=== PATIENT | male | born 1960 | race Caucasian/White ===

== ENCOUNTER 2017-02-18 14:06 | Emergency (ER) | payer OTHER ==
[~2017-02-18] VITALS: Ht 167.6 cm; Wt 90.7 kg
--- NOTE | 2017-02-18 14:06 | NUR ---
Patient BIBA BLS, transferred to [facility]. RN evaluating patient at bedside.
--- NOTE | 2017-02-18 14:10 | NUR ---
PATIENT BIBA; FOUND RESTING IN THE STREET AFTER WALKING FROM [facility] TO [place].EXHAUSTED/SOB/DIAPHORETIC PER HEALTH CENTER ASSOCIATE. BS FIELD 113. PT. AWAKE ,ALERT,ORIENTED.HX: LT. HAND FX. X3 WKS. AGO. NSS 500ML GIVEN FIELD . PT STATES I'M OKAY 'I WANNA GO HOME" . DENIES N/V/D; SKIN IS PINK/WARM/DRY; AAOX4; LUNGS CLEAR BL; HR EVEN AND REGULAR; PT DENIES ANY FEVER, CP, SOB, OR COUGH AT THIS TIME; PATIENT STATES PAIN OF 0/10 AT THIS TIME; PATIENT POSITIONED FOR COMFORT; HOB ELEVATED; BEDRAILS UP X2; BED DOWN. ALL MONITORS IN PLACED.
[2017-02-18] MEDS ORDERED: NACL 0.9% 1,000 ML IV ONE (14:12)
[2017-02-18] MEDS ORDERED: MULTIVITAMIN-12 10 ML, THIAMINE 100 MG, MAGNESIUM SULFATE 50% 2,000 MG, FOLIC ACID 5 MG... IV ONE ×5 (14:12)
[2017-02-18 14:23] VITALS: BP 142/81
[2017-02-18] MEDS ORDERED: MULTIVITAMIN-12 10 ML, THIAMINE 100 MG, MAGNESIUM SULFATE 50% 2,000 MG, FOLIC ACID 5 MG... IV SCH ×5 (14:26)
[2017-02-18 14:27] LABS: BASOPHILS # (AUTO) 0.1 K/uL (0.00-0.22); EOSINOPHILS # (AUTO) 0.2 K/uL (0-0.4); MONOCYTES # (AUTO) 0.1 K/uL (0.8-1.0)
[2017-02-18 14:31] LABS: BASOPHILS % (AUTO) 2.3 % (0.0-2.0); EOSINOPHILS % (AUTO) 4.7 % (0.0-4.0); HEMATOCRIT 38.6 % (36-52); LYMPHOCYTES # (AUTO) 1.8 K/uL (2.0-11.5); LYMPHOCYTES % (AUTO) 36.1 % (20.5-51.1); MEAN CORPUSCULAR HEMOGLOBIN 33 pg (27-31); MEAN CORPUSCULAR HGB CONC 34 g/dL (33-37); MEAN CORPUSCULAR VOLUME 99 fL (80-94); MONOCYTES % (AUTO) 2.8 % (1.7-9.3); NEUTROPHILS # (AUTO) 2.8 K/uL (1.8-7.7); NEUTROPHILS % (AUTO) 54.1 % (42.2-75.2); RED BLOOD CELL COUNT(AUTO) 3.91 MIL/uL (4.20-6.10); RED CELL DISTRIBUTION WIDTH 13.5 % (11.6-13.7)
[2017-02-18 14:33] LABS: PLATELET COUNT (AUTO) 60 K/uL (140-450)
[2017-02-18 14:38] LABS: ANION GAP 18.7 (8-16); CREATININE 0.8 mg/dL (0.7-1.3); POTASSIUM 3.7 mmol/L (3.5-5.1)
[2017-02-18 14:44] LABS: ALBUMIN 3.3 g/dL (3.4-5.0); TOTAL BILIRUBIN 2.5 mg/dL (0.0-1.0); TOTAL PROTEIN, SERUM 7.6 g/dL (6.4-8.2)
--- NOTE | 2017-02-18 14:53 | NUR ---
BLOOD ALCOHOL LEVEL RELAYED TO DR CHIU.
[2017-02-18 15:08] LABS: INR 1.1 (0.8-1.2); PARTIAL THROMBOPLASTIN TIME 27.8 secs (22-35.6); PROTHROMBIN TIME 11.6 secs (10.8-13.4)
--- NOTE | 2017-02-18 15:37 | NUR ---
PT SLEEPING;NO ACUTE DISTRESS NOTED;WILL CONTINUE TO MONITOR PT.
[2017-02-18 16:36] LABS: APPEARANCE,URINE CLEAR (CLEAR); BILIRUBIN,URINE NEGATIVE (NEGATIVE); BLOOD, URINE NEGATIVE (NEGATIVE); COLOR,URINE YELLOW (YELLOW); LEUKOCYTE ESTERASE ,URINE NEGATIVE (NEGATIVE); NITRITE, URINE NEGATIVE (NEGATIVE); PROTEIN,URINE NEGATIVE (NEGATIVE); UGLUCOSE NEGATIVE (NEGATIVE)
[2017-02-18 16:42] LABS: AMPHETAMINE, URINE NEG. ng/ml (NEG <=1000); BARBITURATE, URINE NEG. ng/ml (NEG <=200); BENZODIAZEPINE, URINE NEG. ng/mL (NEG <=200); CANNABINOID, URINE NEG. ng/mL (NEG <=50); COCAINE, URINE NEG. ng/mL (NEG <=300); OPIATE, URINE NEG. ng/mL (NEG <=2000); PHENCYCLIDINE SCREEN,URINE NEG. ng/mL (NEG <=25)
--- NOTE | 2017-02-18 16:45 | NUR ---
PT RESTING ON BED;ASKED FOR URINAL;
--- NOTE | 2017-02-18 17:18 | NUR ---
AT BEDSIDE;ALL MONITORS IN PALCED;NO ACUTE DISTRESS NOTED;WILL CONTINUE TO MONITOR PT.
[2017-02-18 18:53] VITALS: BP 142/86
--- NOTE | 2017-02-18 18:53 | NUR ---
Patient discharged with v/s stable. Written and verbal after care instructions given and explained. Patient verbalized understanding. Ambulatory with steady gait. All questions addressed prior to discharge. Advised to follow up with PMD.
== END 2017-02-18 18:53 | disposition home or self-care (01) ==
LOC: MED 14:06
DX: S62.91XA Unspecified fracture of right hand, initial encounter for closed fracture (principal); F10.129 Alcohol abuse with intoxication, unspecified; T67.5XXA Heat exhaustion, unspecified, initial encounter; X58.XXXA Exposure to other specified factors, initial encounter; Y93.89 Activity, other specified; Y92.89 Other specified places as the place of occurrence of the external cause; Y99.8 Other external cause status
CPT/HCPCS: 36415; 71010; 80053; 80305; 81003; 82553; 83880; 84484; 85025; 85379; 85610; 85730; 93005; 96365; 96366; 99285; A9153; G0482; J3411; J3475; J3490; J7030; Q0092